=== PATIENT | female | born 1980 | race Caucasian/White ===

== ENCOUNTER 2022-07-07 14:04 | Emergency (ER) | payer BC ==
[2022-07-07 14:25] VITALS: TEMP 98.4
--- NOTE | 2022-07-07 15:16 | XR ---
EXAMINATION TYPE: XR chest 2V DATE OF EXAM: 07/07/2022 COMPARISON: NONE HISTORY: Cough and dizziness. TECHNIQUE: Frontal and lateral views of the chest are obtained. FINDINGS: There is no focal air space opacity, pleural effusion, or pneumothorax seen. The cardiac silhouette size is within normal limits. The osseous structures are intact. IMPRESSION: No acute cardiopulmonary process.
[2022-07-07] MEDS ORDERED: SODIUM CHLORIDE 0.9% 1,000 ML IV STA ×2 (16:31)
--- NOTE | 2022-07-07 16:56 | ED ---
General Adult HPI - General Chief complaint: Upper Respiratory Infection Stated complaint: Upper Resp/Chest Pain Time Seen by Provider: 07/07/22 15:58 Source: patient Mode of arrival: ambulatory Limitations: no limitations - History of Present Illness Initial comments: Patient is a 42-year-old female presenting with chief complaint of "I tested positive for Covid and I don't feel any better". Patient started experiencing symptoms on 07/02 and tested positive for Covid on 07/13. Patient states that she has been fatigued and symptoms are not improving. She states that when she gets up to walk she feels very dizzy. She admits to some right-sided pleuritic chest pain. She admits to a sensation of her heart racing. She denies any abdominal pain, nausea, vomiting, difficulty swallowing, diarrhea, hematochezia, melena, headache, vision or hearing changes. - Related Data Home Medications Medication Instructions Recorded Confirmed Phentermine HCl [Adipex-P] 37.5 mg PO DAILY@1100 07/07/22 07/07/22 buPROPion HCL [buPROPion HCL SR] 400 mg PO DAILY@1100 07/07/22 07/07/22 traZODone HCL [Desyrel] 75 mg PO HS 07/07/22 07/07/22 Allergies Allergy/AdvReac Type Severity Reaction Status Date / Time No Known Allergies Allergy Verified 07/07/22 14:25 Review of Systems ROS Statement: Those systems with pertinent positive or pertinent negative responses have been documented in the HPI. ROS Other: All systems not noted in ROS Statement are negative. Past Medical History Past Medical History: No Reported History History of Any Multi-Drug Resistant Organisms: None Reported Past Surgical History: No Surgical Hx Reported Past Psychological History: No Psychological Hx Reported Smoking Status: Never smoker Past Alcohol Use History: Occasional Past Drug Use History: Marijuana General Exam Limitations: no limitations General appearance: alert, in no apparent distress Head exam: Present: atraumatic, normocephalic, normal inspection Eye exam: Present: normal appearance, PERRL, EOMI. Absent: scleral icterus, conjunctival injection, periorbital swelling Neck exam: Present: normal inspection Respiratory exam: Present: normal lung sounds bilaterally. Absent: respiratory distress, wheezes, rales, rhonchi, stridor Cardiovascular Exam: Present: normal rhythm, tachycardia, normal heart sounds. Absent: systolic murmur, diastolic murmur, rubs, gallop, clicks Neurological exam: Present: alert, oriented X3, CN II-XII intact Psychiatric exam: Present: normal affect, normal mood Skin exam: Present: warm, dry, intact, normal color. Absent: rash Course Vital Signs 07/07/22 07/07/22 07/07/22 14:21 16:32 17:27 Temperature 98.4 F Pulse Rate 110 H 90 Respiratory 20 18 Rate Blood Pressure 122/85 129/92 O2 Sat by Pulse 100 99 Oximetry Medical Decision Making - Medical Decision Making Is a 42-year-old female who tested positive for Covid several days ago, but states that symptoms have not improved. She admits to pleuritic chest pain, dizziness, elevated heart rate on exertion. On physical examination patient appears somewhat anxious, she is tachycardic, remainder of vitals are stable. Chest x-ray, completed from waiting room before my evaluation, shows no acute process. I explained to the patient that I would like to run labs and administer fluids, I'll like to rule out pulmonary embolism. Patient is declining further workup at this time, stating that "I just need to let it run its course". I explained to the patient the risks of not undergoing further workup today, including . Patient conveyed verbal understanding. She is of sound mind and body ache make her own decisions. Patient is continuing to decline further workup. Patient signed out AGAINST MEDICAL ADVICE. Follow-up with PCP. Report back to ER with any new or worsening symptoms. Discussed return parameters and answered all questions. Patient conveyed verbal understanding and agreed to the plan. I discussed this case in detail with my attending Dr. Pulliam Disposition Clinical Impression: COVID Disposition: Left Against Medical Advice Condition: Fair Instructions (If sedation given, give patient instructions): COVID-19 (Coronavirus Disease 2019) (ED) Additional Instructions: Follow-up with PCP. Report back to ER with any new or worsening symptoms. Stay well-hydrated and get plenty of rest. Is patient prescribed a controlled substance at d/c from ED?: No Referrals: Crista Esqueda MD [Primary Care Provider] - 1-2 days Time of Disposition: 17:34
[2022-07-07] MEDS ORDERED: KETOROLAC 15 MG/ML 1 ML VIAL IVP STA (17:12)
[2022-07-07 17:28] VITALS: BP 129/92; PULSE 90; RESP 18
== END 2022-07-07 17:46 | disposition left against medical advice (07) ==
LOC: EC 14:04
DX: U07.1 COVID-19 (principal)
CPT/HCPCS: 71046; 99285

== ENCOUNTER → 2022-12-26 | Outpatient (CLI) | payer BC ==
--- NOTE | 2022-12-26 16:07 | XR ---
EXAMINATION TYPE: XR knee 4V RT DATE OF EXAM: 12/26/2022 COMPARISON: None HISTORY: Contusion, pain x1 week fall TECHNIQUE: 4 view right knee FINDINGS: No acute fracture or dislocations are evident. Joint spaces are preserved. No joint effusio n is evident. Follow up exams can be performed as clinically indicated IMPRESSION: 1. No acute or subacute osseous abnormality radiographically apparent.
== END | disposition home or self-care (01) ==
LOC: RADXRMAIN 14:29
PROVIDERS: ATTEND Family Medicine
DX: S80.01XD Contusion of right knee, subsequent encounter (principal)

== ENCOUNTER → 2023-01-02 | Outpatient (CLI) | payer BC ==
--- NOTE | 2023-01-02 22:46 | MR ---
EXAMINATION TYPE: MR knee RT wo con DATE OF EXAM: 01/02/2023 COMPARISON: None HISTORY: Rt knee pain, twisting injury TECHNIQUE: Multiplanar, multisequence images of the knee is performed without IV contrast. FINDINGS: MEDIAL MENISCUS: Anterior and posterior horns are intact without tear. LATERAL MENISCUS: Anterior and posterior horns are intact without tear. CRUCIATE LIGAMENTS: Increased signal on the ACL may reflect strain or partial tear. No evidence for r upture. PCL is intact. COLLATERAL LIGAMENTS: The medial collateral ligament and lateral collateral ligament complex are inta ct and unremarkable. EXTENSOR MECHANISM: Visualized quadriceps and patellar tendons are intact. EFFUSION: No significant suprapatellar joint effusion. POPLITEAL CYST: No popliteal/cervantes cyst. TRICOMPARTMENT SPACES: Intact CARTILAGE: Intact BONE MARROW SIGNAL: No focal abnormal marrow signal is appreciated. OTHER: No additional significant abnormality is appreciated. IMPRESSION: 1. Increased signal on the ACL may reflect strain or partial tear. No evidence for rupture.
== END | disposition home or self-care (01) ==
LOC: RADMRIMAIN 12:52
PROVIDERS: ATTEND Family Medicine
DX: M23.91 Unspecified internal derangement of right knee (principal)

== ENCOUNTER 2024-04-21 17:45 | Emergency (ER) | payer BC ==
--- NOTE | 2024-04-21 18:02 | ED ---
General Adult HPI - General Source: patient, RN notes reviewed Mode of arrival: ambulatory Limitations: no limitations <Milli Recio - Last Filed: 04/21/24 18:23> <Janene Cifuentes - Last Filed: 05/22/24 08:21> - General Chief complaint: Shortness of Breath Stated complaint: SOB Time Seen by Provider: 04/21/24 18:00 - History of Present Illness Initial comments: Quick note: patient presents to the emergency department for evaluation of shortness of breath. Patient reports this has been going on since Monday. States that it occurs when she walks long distances. Denies chest pain. (Milli Recio) 44-year-old female with no reported past medical history presents emergency department reporting shortness of breath. Report to exertional dyspnea which started Monday. He denies any inciting event. No chest pain. No history of pulmonary or cardiac disease. She denies any infectious symptoms to include fevers, chills or cough. No history of DVT or PE. No calf pain or swelling. No recent travel. No concern for . No other alleviating, precipitating or modifying factors (Janene Cifuentes) - Related Data Home Medications Medication Instructions Recorded Confirmed Phentermine HCl [Adipex-P] 37.5 mg PO DAILY@1100 07/07/22 07/07/22 buPROPion HCL [buPROPion HCL SR] 400 mg PO DAILY@1100 07/07/22 07/07/22 traZODone HCL [Desyrel] 75 mg PO HS 07/07/22 07/07/22 Allergies Allergy/AdvReac Type Severity Reaction Status Date / Time No Known Allergies Allergy Verified 04/21/24 17:58 Review of Systems ROS Other: All systems not noted in ROS Statement are negative. <Milli Recio - Last Filed: 04/21/24 18:23> ROS Other: All systems not noted in ROS Statement are negative. <Janene Cifuentes - Last Filed: 05/22/24 08:21> ROS Statement: Those systems with pertinent positive or pertinent negative responses have been documented in the HPI. Past Medical History Past Medical History: No Reported History History of Any Multi-Drug Resistant Organisms: None Reported Past Surgical History: No Surgical Hx Reported Past Psychological History: No Psychological Hx Reported Smoking Status: Never smoker Past Alcohol Use History: Occasional Past Drug Use History: Marijuana <Milli Recio - Last Filed: 04/21/24 18:23> General Exam Limitations: no limitations <Milli Recio - Last Filed: 04/21/24 18:23> General appearance: alert, in no apparent distress Head exam: Present: atraumatic, normocephalic, normal inspection Eye exam: Present: normal appearance, PERRL, EOMI. Absent: scleral icterus, conjunctival injection, periorbital swelling ENT exam: Present: normal exam, mucous membranes moist Neck exam: Present: normal inspection. Absent: tenderness, meningismus, lymphadenopathy Respiratory exam: Present: normal lung sounds bilaterally. Absent: respiratory distress, wheezes, rales, rhonchi, stridor Cardiovascular Exam: Present: regular rate, normal rhythm, normal heart sounds. Absent: systolic murmur, diastolic murmur, rubs, gallop, clicks GI/Abdominal exam: Present: soft, normal bowel sounds. Absent: distended, tenderness, guarding, rebound, rigid Extremities exam: Present: normal inspection, full ROM, normal capillary refill. Absent: tenderness, pedal edema, joint swelling, calf tenderness Back exam: Present: normal inspection Neurological exam: Present: alert, oriented X3, CN II-XII intact Psychiatric exam: Present: normal affect, normal mood Skin exam: Present: warm, dry, intact, normal color. Absent: rash <Janene Cifuentes - Last Filed: 05/22/24 08:21> - General Exam Comments Initial Comments: Visual Physical Exam Vital signs reviewed General: Well-appearing, nontoxic, no acute distress. Head: Normocephalic, atraumatic Eyes: PERRLA, EOMI ENT: Airway patent Chest: Nonlabored breathing Skin: No visual rash, normal skin tone Neuro: Alert and oriented 3 Musculoskeletal: No gross abnormalities (Milli Recio) Course Vital Signs 04/21/24 04/21/24 04/21/24 17:57 19:18 22:21 Temperature 98.4 F 97.8 F Pulse Rate 92 86 82 Respiratory 18 20 18 Rate Blood Pressure 124/84 118/78 122/90 O2 Sat by Pulse 100 98 98 Oximetry Medical Decision Making <Milli Recio - Last Filed: 04/21/24 18:23> - Lab Data Result diagrams: 04/21/24 18:03 04/21/24 18:03 <Janene Cifuentes A - Last Filed: 05/22/24 08:21> - Medical Decision Making Quick note preformed and electronically signed by Milli Recio PA-C (Milli Recio) Was pt. sent in by a medical professional or institution (, [employer], PRESIDENT AND CHIEF EXECUTIVE OFFICER, urgent care, hospital, or longterm...) When possible be specific @ -No Did you speak to anyone other than the patient for history (EMS, parent, family, police, friend...)? What history was obtained from this source @ -No Did you review nursing and triage notes (agree or disagree)? Why? @ -I reviewed and agree with nursing and triage notes Were old charts reviewed (outside hosp., previous admission, EMS record, old EKG, old radiological studies, urgent care reports/EKG's, longterm records)? Report findings @ -No old charts were reviewed Differential Diagnosis (chest pain, altered mental status, abdominal pain women, abdominal pain men, vaginal bleeding, weakness, fever, dyspnea, syncope, headache, dizziness, GI bleed, back pain, seizure, CVA, palpatations, mental health, musculoskeletal)? @ -Differential Dyspnea: Coronary syndrome, arrhythmia, tamponade, asthma, COPD, pulmonary embolism, pneumonia, pneumothorax, pulmonary effusion, anaphylaxis, diabetic ketoacidosis, flailed chest, pulmonary contusion, diaphragmatic rupture, anemia, neuromuscular, this is not meant to be an all-inclusive list. EKG interpreted by me (3pts min.). @ -Yes and demonstrates sinus rhythm with a rate of 91. RI interval 147. QRS 85. QTc of 371. No acute ST segment elevations or depressions X-rays interpreted by me (1pt min.). @ -Yes and demonstrates no acute process CT interpreted by me (1pt min.). @ -None done U/S interpreted by me (1pt. min.). @ -None done What testing was considered but not performed or refused? (CT, X-rays, U/S, labs)? Why? @ -None What meds were considered but not given or refused? Why? @ -None Did you discuss the management of the patient with other professionals (professionals i.e. Dr., PA, PRESIDENT AND CHIEF EXECUTIVE OFFICER, lab, RT, psych nurse, social worker school, manufacturing weaver, teacher, certification officer, case hardener)? Give summary @ -No Was smoking cessation discussed for >3mins.? @ -No Was critical care preformed (if so, how long)? @ -No Were there social determinants of health that impacted care today? How? (Homelessness, low income, unemployed, alcoholism, drug addiction, transportation, low edu. Level, literacy, decrease access to med. care, prison, rehab)? @ -No Was there de-escalation of care discussed even if they declined (Discuss DNR or withdrawal of care, Hospice)? DNR status @ -No What co-morbidities impacted this encounter? (DM, HTN, Smoking, COPD, CAD, Cancer, CVA, ARF, Chemo, Hep., AIDS, mental health diagnosis, sleep apnea, morbid obesity)? @ -None Was patient admitted / discharged? Hospital course, mention meds given and route, prescriptions, significant lab abnormalities, going to OR and other pertinent info. @ -Discharge. Upon arrival patient seen and evaluated in room 7. Thorough his tory and physical exam was performed. IV access was established. Laboratory studies are conducted. Twelve-lead EKG was performed. D-dimer is negative. Chest x-ray demonstrates no acute process. At this time patient will be discharged home and is instructed to follow-up with PCP for further evaluation of her symptoms. Recommend echo. Return for any new or worsening symptoms. Patient agreeable to plan was discharged in stable condition Undiagnosed new problem with uncertain prognosis? @ -Yes Drug Therapy requiring intensive monitoring for toxicity (Heparin, Nitro, Insulin, Cardizem)? @ -No Were any procedures done? @ -No Diagnosis/symptom? @ -Acute exertional dyspnea Acute, or Chronic, or Acute on Chronic? @ -Acute Uncomplicated (without systemic symptoms) or Complicated (systemic symptoms)? @ -Complicated Side effects of treatment? @ -No Exacerbation, Progression, or Severe Exacerbation? @ -No Poses a threat to life or bodily function? How? (Chest pain, [place], [place], pneumonia, PE, COPD, DKA, ARF, appy, cholecystitis, CVA, Diverticulitis, Homicidal, Suicidal, threat to staff... and all critical care pts) @ -No (Janene Cifuentes) - Lab Data Lab Results 04/21/24 04/21/24 04/21/24 Range/Units 18:03 18:03 18:03 WBC 6.0 (3.8-10.6) k/uL RBC 4.75 (3.80-5.40) m/uL Hgb 14.9 (11.4-16.0) gm/dL Hct 45.4 (34.0-46.0) % MCV 95.7 (80.0-100.0) fL MCH 31.4 (25.0-35.0) pg MCHC 32.8 (31.0-37.0) g/dL RDW 12.0 (11.5-15.5) % Plt Count 326 (150-450) k/uL MPV 6.4 Neutrophils % 69 % Lymphocytes % 21 % Monocytes % 6 % Eosinophils % 3 % Basophils % 0 % Neutrophils # 4.1 (1.3-7.7) k/uL Lymphocytes # 1.2 (1.0-4.8) k/uL Monocytes # 0.3 (0-1.0) k/uL Eosinophils # 0.2 (0-0.7) k/uL Basophils # 0.0 (0-0.2) k/uL PT 10.6 (10.0-12.5) sec INR 1.0 (<1.2) APTT 22.7 (22.0-30.0) sec D-Dimer (<0.60) mg/L FEU Sodium 137 (137-145) mmol/L Potassium 4.0 (3.5-5.1) mmol/L Chloride 105 (98-107) mmol/L Carbon Dioxide 26 (22-30) mmol/L Anion Gap 6 mmol/L BUN 18 H (7-17) mg/dL Creatinine 0.70 (0.52-1.04) mg/dL Est GFR (CKD-EPI)AfAm >90 (>60 ml/min/1.73 sqM) Est GFR (CKD-EPI)NonAf >90 (>60 ml/min/1.73 sqM) Glucose 85 (74-99) mg/dL Calcium 9.2 (8.4-10.2) mg/dL Total Bilirubin 0.3 (0.2-1.3) mg/dL AST 25 (14-36) U/L ALT 20 (4-34) U/L Alkaline Phosphatase 93 (38-126) U/L Troponin I (0.000-0.034) ng/mL Total Protein 6.9 (6.3-8.2) g/dL Albumin 4.4 (3.5-5.0) g/dL Influenza Type A (PCR) (Not Detectd) Influenza Type B (PCR) (Not Detectd) RSV (PCR) (Not Detectd) SARS-CoV-2 (PCR) (Not Detectd) 04/21/24 04/21/24 04/21/24 Range/Units 18:03 20:06 20:06 WBC (3.8-10.6) k/uL RBC (3.80-5.40) m/uL Hgb (11.4-16.0) gm/dL Hct (34.0-46.0) % MCV (80.0-100.0) fL MCH (25.0-35.0) pg MCHC (31.0-37.0) g/dL RDW (11.5-15.5) % Plt Count (150-450) k/uL MPV Neutrophils % % Lymphocytes % % Monocytes % % Eosinophils % % Basophils % % Neutrophils # (1.3-7.7) k/uL Lymphocytes # (1.0-4.8) k/uL Monocytes # (0-1.0) k/uL Eosinophils # (0-0.7) k/uL Basophils # (0-0.2) k/uL PT (10.0-12.5) sec INR (<1.2) APTT (22.0-30.0) sec D-Dimer 0.30 (<0.60) mg/L FEU Sodium (137-145) mmol/L Potassium (3.5-5.1) mmol/L Chloride (98-107) mmol/L Carbon Dioxide (22-30) mmol/L Anion Gap mmol/L BUN (7-17) mg/dL Creatinine (0.52-1.04) mg/dL Est GFR (CKD-EPI)AfAm (>60 ml/min/1.73 sqM) Est GFR (CKD-EPI)NonAf (>60 ml/min/1.73 sqM) Glucose (74-99) mg/dL Calcium (8.4-10.2) mg/dL Total Bilirubin (0.2-1.3) mg/dL AST (14-36) U/L ALT (4-34) U/L Alkaline Phosphatase (38-126) U/L Troponin I <0.012 (0.000-0.034) ng/mL Total Protein (6.3-8.2) g/dL Albumin (3.5-5.0) g/dL Influenza Type A (PCR) Not Detected (Not Detectd) Influenza Type B (PCR) Not Detected (Not Detectd) RSV (PCR) Not Detected (Not Detectd) SARS-CoV-2 (PCR) Not Detected (Not Detectd) Disposition <Milli Recio - Last Filed: 04/21/24 18:23> Is patient prescribed a controlled substance at d/c from ED?: No Time of Disposition: 22:16 <Janene Cifuentes - Last Filed: 05/22/24 08:21> Clinical Impression: Exertional dyspnea Disposition: HOME SELF-CARE Condition: Stable Instructions (If sedation given, give patient instructions): Dyspnea (ED) Additional Instructions: I recommend an ultrasound of your heart because of your current symptoms. Please follow-up with your primary care doctor to have this done. Return to the emergency department for any new or worsening symptoms Referrals: Crista Esqueda MD [Primary Care Provider] - 1-2 days
--- NOTE | 2024-04-21 18:20 | XR ---
EXAMINATION TYPE: XR chest 2V DATE OF EXAM: 04/21/2024 6:11 PM CLINICAL INDICATION:Female, 44 years old with history of difficulty breathing; [facility] COMPARISON: Chest radiographs from 06/27/2022. TECHNIQUE: XR chest 2V Frontal view of the chest. FINDINGS: Lungs/Pleura: There is no evidence of pleural effusion, focal consolidation, or pneumothorax. Pulmonary vascularity: Unremarkable. Heart/mediastinum: Cardiomediastinal silhouette is unremarkable. Musculoskeletal: No acute osseous pathology. Other findings: None IMPRESSION: No acute cardiopulmonary disease/process.
[2024-04-21 18:30] LABS: Basophils % (A) 0 %; Eosinophils # (A) 0.2 k/uL (0-0.7); Eosinophils % (A) 3 %; HCT 45.4 % (34.0-46.0); HGB 14.9 gm/dL (11.4-16.0); Lymphocytes # (A) 1.2 k/uL (1.0-4.8); Lymphocytes % (A) 21 %; MCH 31.4 pg (25.0-35.0); MCHC 32.8 g/dL (31.0-37.0); MCV 95.7 fL (80.0-100.0); Mean Platelet Volume 6.4; Monocytes # (A) 0.3 k/uL (0-1.0); Monocytes % (A) 6 %; Neutrophils # (A) 4.1 k/uL (1.3-7.7); Neutrophils % (A) 69 %; Platelet Count 326 k/uL (150-450); RBC 4.75 m/uL (3.80-5.40)
[2024-04-21 18:39] LABS: Partial Thromboplastin Time 22.7 sec (22.0-30.0); Prothrombin Time 10.6 sec (10.0-12.5)
[2024-04-21 18:42] LABS: ALT 20 U/L (4-34); AST 25 U/L (14-36); African American GFR (CKD) >90 (>60 ml/min/1.73 sqM); Albumin 4.4 g/dL (3.5-5.0); Alkaline Phosphatase 93 U/L (38-126); Anion Gap 6 mmol/L; Blood Urea Nitrogen 18 mg/dL (7-17); Calcium 9.2 mg/dL (8.4-10.2); Carbon Dioxide 26 mmol/L (22-30); Chloride 105 mmol/L (98-107); Glucose 85 mg/dL (74-99); Non-African American GFR(CKD) >90 (>60 ml/min/1.73 sqM); Sodium 137 mmol/L (137-145); Total Bilirubin 0.3 mg/dL (0.2-1.3); Total Protein 6.9 g/dL (6.3-8.2)
[2024-04-21 22:22] VITALS: BP 122/90; PULSE 82; RESP 18; TEMP 97.8
== END 2024-04-21 22:27 | disposition home or self-care (01) ==
LOC: EC 17:45
DX: R06.00 Dyspnea, unspecified (principal)
CPT/HCPCS: 36415; 71046; 80053; 84484; 85025; 85379; 85610; 85730; 87636; 93005; 99285

== ENCOUNTER → 2024-06-11 | Outpatient (CLI) | payer BC ==
[2024-06-11 15:35] LABS: Basophils # (A) 0.05 X 10*3/uL (0.00-0.10); Basophils % (A) 0.5 %; Eosinophils # (A) 0.12 X 10*3/uL (0.04-0.35); Eosinophils % (A) 1.3 %; HCT 41.5 % (37.2-46.3); HGB 13.8 g/dL (12.0-15.0); Lymphocytes # (A) 2.03 X 10*3/uL (0.90-5.00); Lymphocytes % (A) 21.4 %; MCH 31.7 pg (27.0-32.0); MCHC 33.3 g/dL (32.0-37.0); MCV 95.4 FL (80.0-97.0); Mean Platelet Volume 8.9 FL (9.5-12.2); Monocytes # (A) 0.85 X 10*3/uL (0.20-1.00); NRBC Per 100 WBC 0 X 10*3/uL (0.00-0.01); Neutrophils # (A) 6.39 X 10*3/uL (1.80-7.70); Neutrophils % (A) 67.5 %; Platelet Count 317 X 10*3/uL (140-440); RBC 4.35 X 10*6/uL (4.10-5.20); RDW 12.2 % (11.5-14.5); WBC 9.47 X 10*3/uL (4.50-10.00)
[2024-06-11 15:58] LABS: Progesterone 2.8 ng/mL
[2024-06-11 16:16] LABS: ALT 24 U/L (8-44); AST 18 U/L (13-35); Albumin 4.4 g/dL (3.8-4.9); Alkaline Phosphatase 75 U/L (41-126); Blood Urea Nitrogen 11.6 mg/dL (9.0-27.0); Calcium 9.6 mg/dL (8.7-10.3); Carbon Dioxide 27.6 mmol/L (21.6-31.8); Chloride 102 mmol/L (96-109); Glucose 84 mg/dL (70-110); LDH 179 U/L (120-246); Magnesium 1.8 mg/dL (1.5-2.4); Potassium 3.8 mmol/L (3.5-5.5); Sodium 140 mmol/L (135-145); T4, Free (Free Thyroxine) 1.12 ng/dL (0.80-1.80); Total Bilirubin 0.3 mg/dL (0.3-1.2); Total Protein 6.4 g/dL (6.2-8.2)
[2024-06-11 16:30] LABS: Follicle Stimulating Hormone 4.7 mIU/mL; Luteinizing Hormone 6.8 mIU/mL
[2024-06-11 16:55] LABS: Immunoglobulin E 26.7 IU/mL (0.00-114.00)
[2024-06-12 12:26] LABS: Alpha 1 Anti-Trypsin 142 mg/dL (90 - 200)
== END ==
LOC: LABWHC1 11:43
PROVIDERS: ATTEND Family Medicine
DX: N92.1 Excessive and frequent menstruation with irregular cycle (principal); J45.40 Moderate persistent asthma, uncomplicated; R06.02 Shortness of breath; R53.82 Chronic fatigue, unspecified
CPT/HCPCS: 36415; 80053; 82103; 82104; 82533; 82607; 82670; 82785; 83001; 83002; 83615; 83735; 84144; 84403; 84439; 84443; 85025